=== PATIENT | male | born 1965 | race Caucasian/White ===

== ENCOUNTER 2017-02-16 22:00 | Emergency (ER) | payer SELFPAY ==
[2017-02-16 22:13] VITALS: RESP 20; TEMP 97.3
[2017-02-16] MEDS ORDERED: THIAMINE 100 MG/ML 100 MG/ML SOL IV ONE (22:48)
[2017-02-16] MEDS ORDERED: SODIUM CHLORIDE 0.9% 1000 ML SOL IV ONE (22:48)
[2017-02-16] MEDS ORDERED: THIAMINE 100 MG/ML 100 MG/ML SOL ONE (22:52)
[2017-02-16 23:13] LABS: BASOPHILS % (AUTO) 1 % (0-3); EOSINOPHILS % (AUTO) 1 % (0-9); HEMATOCRIT 38 % (39-53); MEAN CORPUSCULAR HGB CONC 35.6 gm/dl (32.0-36.0); MEAN CORPUSCULAR VOLUME 86 fL (80-100); MONOCYTES % (AUTO) 5.1 % (0-12)
[2017-02-16 23:26] LABS: ALBUMIN 2.8 gm/dl (3.4-5.0); CALCIUM 7.8 mg/dl (8.5-10.1); POTASSIUM 3.5 mMol/L (3.5-5.1)
[2017-02-17 00:40] VITALS: O2SAT 93
[2017-02-17 00:41] VITALS: BP 124/69; PULSE 65
== END 2017-02-17 00:30 | disposition home or self-care (01) | DRG 897 ==
LOC: ED 22:00
DX: F10.129 Alcohol abuse with intoxication, unspecified (principal); Y90.8 Blood alcohol level of 240 mg/100 ml or more
CPT/HCPCS: 36415; 80053; 80307; 82150; 85025; 96365; 96374; 99284